=== PATIENT | male | born 1965 | race Asian ===

== ENCOUNTER → 2018-10-02 | Outpatient (REF) ==
[2018-10-02 14:56] LABS: RUBELLA IgG QUALITATIVE IMMUNE (IMMUNE)
[2018-10-03 10:10] LABS: RUBEOLA IgG ANTIBODY >300.0 AU/mL (Immune >29.9)
[2018-10-05 15:07] LABS: QuantiFERON-TB Gold Plus Negative (Negative)
== END ==
LOC: M LAB REF 13:20
DX: Z02.89 Encounter for other administrative examinations (principal)

== ENCOUNTER → 2019-04-30 | Outpatient (CLI) | payer BC ==
--- NOTE | 2019-04-30 10:57 | REP ---
LUMBAR SPINE SERIES: Seven views. HISTORY: Intervertebral disc disorder with radiculopathy. Low back pain. FINDINGS: Lateral views including flexion extension lateral views are presented. There is straightening and some limitation of flexion/extension range of motion. No instability is seen however. Vertebral body heights are preserved in the lumbar spine. Alignment is normal. There is degenerative disc disease at multiple levels. This is most pronounced at L5-S1 where there is narrowing, sclerosis, spurring, and a vacuum phenomenon. There is degenerative narrowing of the L4-5 and L3-4 discs with discogenic spurring anteriorly. There is degenerative disc spurring at T12-L1 as well. There is no evidence of spondylolysis or spondylolisthesis. Mild osteoarthritic facet hypertrophy is present bilaterally at L3-4, L4-5, and L5-S1. Psoas margins are symmetric. Sacrum and SI joints are unremarkable. IMPRESSION: Degenerative spondylosis changes as noted above. Electronically Signed by Aidan Quiñonez MD 04/30/2019 11:15 A
== END ==
LOC: M RAD 09:17
PROVIDERS: ATTEND Physician Assistant
DX: M47.817 Spondylosis without myelopathy or radiculopathy, lumbosacral region (principal); M51.36 Other intervertebral disc degeneration, lumbar region; M25.78 Osteophyte, vertebrae

== ENCOUNTER 2019-05-21 10:24 | Day surgery (SDC) | payer BC ==
[~2019-05-21] VITALS: Ht 162.6 cm; Wt 69.8 kg
[~2019-05-21 10:24] MED LIST: ALLO100T PO; NS 1,000 ML IV ONE
[2019-05-21] MEDS ORDERED: PROPOFOL 500 MG/50 ML VIAL As Ordered ONE (11:23)
[2019-05-21] MEDS ORDERED: LIDOCAINE 2% INJ 100 MG/5 ML SDV (FOR ANES.) As Ordered ONE (11:23)
[2019-05-21] MEDS ORDERED: GLYCOPYRROLATE INJ 0.2 MG/ML 2 ML VIAL As Ordered ONE (11:34)
--- NOTE | 2019-05-21 11:46 | ROOR ---
Patient Name: Alcon Landaverde Procedure Date: 05/21/2019 11:18 AM Date of : 1965 Age: 53 Room: [facility] Gender: Male Note Status: Finalized Procedure: Colonoscopy Indications: Screening for colorectal malignant neoplasm Providers: DO Sage Bella MD: Alfredo Venegas Requesting Provider: Medicines: Propofol per Anesthesia Complications: No immediate complications. Procedure: Pre-Anesthesia Assessment: - Prior to the procedure, a History and Physical was performed, and patient medications and allergies were reviewed. The patient is competent. The risks and benefits of the procedure and the sedation options and risks were discussed with the patient. All questions were answered and informed consent was obtained. Patient identification and proposed procedure were verified by the physician, the nurse, the anesthesiologist and the lubrication technician in the endoscopy suite. Mental Status Examination: alert and oriented. Airway Examination: normal oropharyngeal airway and neck mobility. Respiratory Examination: clear to auscultation. CV Examination: normal. Prophylactic Antibiotics: The patient does not require prophylactic antibiotics. Prior Anticoagulants: The patient has taken no previous anticoagulant or antiplatelet agents. ASA Grade Assessment: II - A patient with mild systemic disease. After reviewing the risks and benefits, the patient was deemed in satisfactory condition to undergo the procedure. The anesthesia plan was to use monitored anesthesia care (MAC). Immediately prior to administration of medications, the patient was re-assessed for adequacy to receive sedatives. The heart rate, respiratory rate, oxygen saturations, blood pressure, adequacy of pulmonary ventilation, and response to care were monitored throughout the procedure. The physical status of the patient was re-assessed after the procedure. The Colonoscope was introduced through the anus and advanced to the cecum, identified by appendiceal orifice and ileocecal valve. The colonoscopy was performed without difficulty. The patient tolerated the procedure well. Findings: Hemorrhoids were found on perianal exam. A less than 5 mm polyp was found in the transverse colon. The polyp was semi-pedunculated. The polyp was removed with a jumbo cold forceps. Resection and retrieval were complete. Estimated blood loss was minimal. A few small-mouthed diverticula were found in the sigmoid colon. The exam was otherwise without abnormality on direct and retroflexion views. Impression: - Hemorrhoids found on perianal exam. - One less than 5 mm polyp in the transverse colon, removed with a jumbo cold forceps. Resected and retrieved. - Diverticulosis in the sigmoid colon. - The examination was otherwise normal on direct and retroflexion views. Recommendation: - Patient has a contact number available for emergencies. The signs and symptoms of potential delayed complications were discussed with the patient. Return to normal activities tomorrow. Written discharge instructions were provided to the patient. - Repeat colonoscopy in 5-10 years for surveillance based on pathology results. - Return to my office as previously scheduled. Ryan Barnett DO 05/21/2019 11:45:51 AM Electronically signed by Ryan Barnett DO Number of Addenda: 0 Note Initiated On: 05/21/2019 11:18 AM Estimated Blood Loss: Estimated blood loss was minimal.
[2019-05-21 12:10] VITALS: BP 142/76
== END 2019-05-21 12:44 | disposition home or self-care (01) ==
LOC: M OPP 10:24
PROVIDERS: ATTEND Surgery
DX: Z12.11 Encounter for screening for malignant neoplasm of colon (principal); K64.9 Unspecified hemorrhoids; D12.3 Benign neoplasm of transverse colon; K57.30 Diverticulosis of large intestine without perforation or abscess without bleeding; Z79.899 Other long term (current) drug therapy

== ENCOUNTER → 2020-04-13 | Outpatient (CLI) | payer BC ==
[~2020-04-13] MED LIST changes: -NS 1,000 ML IV ONE
[2020-04-13 11:50] LABS: BASO # 0.1 10^3/uL (0.0-0.2); EOS # 0.2 10^3/uL (0.0-0.5); EOS % 4.9 % (0.0-3.0); HEMATOCRIT 47.1 % (42.0-52.0); HEMOGLOBIN 15.5 g/dl (13.5-17.5); LYMPH # 1.2 10^3/uL (1.5-5.0); LYMPH % 25.2 % (24.0-44.0); MEAN CORPUSCULAR HEMOGLOBIN 30.3 pg (27.0-33.0); MEAN CORPUSCULAR HGB CONC 32.9 g/dl (32.0-36.5); MONO # 0.4 10^3/uL (0.0-0.8); MONO % 7.5 % (0.0-5.0); NEUTROPHILS % 61.2 % (36.0-66.0); PLATELET COUNT, AUTOMATED 175 10^3/uL (150-450); RED BLOOD COUNT 5.12 10^6/uL (4.30-6.10); WHITE BLOOD COUNT 4.9 10^3/uL (4.0-10.0)
[2020-04-13 12:26] LABS: ALBUMIN 4.1 GM/DL (3.2-5.2); ALT/SGPT 33 U/L (12-78); BILIRUBIN,TOTAL 0.6 MG/DL (0.2-1.0); BLOOD UREA NITROGEN 13 MG/DL (7-18); CARBON DIOXIDE LEVEL 31 MEQ/L (21-32); CHLORIDE LEVEL 105 MEQ/L (98-107); CHOLESTEROL LEVEL 122 MG/DL (<200); CHOLESTEROL RISK RATIO 2.772 (<5); CREATININE FOR GFR 1.22 MG/DL (0.70-1.30); GLOMERULAR FILTRATION RATE > 60.0 (>56); GLUCOSE, FASTING 88 MG/DL (70-100); HDL CHOLESTEROL 44 MG/DL (>40); LDL CHOLESTEROL 60 MG/DL (<100); NON-HDL-C 78 MG/DL; POTASSIUM SERUM 4.2 MEQ/L (3.5-5.1); SODIUM LEVEL 139 MEQ/L (136-145); TOTAL PROTEIN 7.5 GM/DL (6.4-8.2); TRIGLYCERIDES LEVEL 88 MG/DL (<150)
[2020-04-13 12:42] LABS: HEMOGLOBIN A1c 5.9 %
== END ==
LOC: M PLALAB 08:58
PROVIDERS: ATTEND Physician Assistant
DX: E78.2 Mixed hyperlipidemia (principal); M10.072 Idiopathic gout, left ankle and foot; R73.03 Prediabetes

== ENCOUNTER → 2020-09-27 | Outpatient (CLI) | payer BC ==
[2020-09-27 11:26] LABS: HEMOGLOBIN A1c 5.6 %
[2020-09-27 11:36] LABS: ALBUMIN 4.5 GM/DL (3.2-5.2); ALT/SGPT 30 U/L (12-78); BILIRUBIN,TOTAL 0.7 MG/DL (0.2-1.0); BLOOD UREA NITROGEN 19 MG/DL (7-18); CALCIUM LEVEL 9.3 MG/DL (8.5-10.1); CARBON DIOXIDE LEVEL 29 MEQ/L (21-32); CHLORIDE LEVEL 103 MEQ/L (98-107); GLOMERULAR FILTRATION RATE > 60.0 (>56); GLUCOSE, FASTING 99 MG/DL (70-100); POTASSIUM SERUM 4.6 MEQ/L (3.5-5.1); SODIUM LEVEL 139 MEQ/L (136-145); TOTAL PROTEIN 7.9 GM/DL (6.4-8.2); URIC ACID 6.6 MG/DL (3.5-7.2)
== END ==
LOC: M PLALAB 08:08
PROVIDERS: ATTEND Physician Assistant
DX: M10.072 Idiopathic gout, left ankle and foot (principal); R73.03 Prediabetes

== ENCOUNTER → 2021-03-29 | Outpatient (CLI) | payer BC ==
[2021-03-29 13:54] LABS: HEMOGLOBIN A1c 5.6 %
[2021-03-29 14:14] LABS: ALBUMIN 4.6 GM/DL (3.2-5.2); ALT/SGPT 40 U/L (12-78); BILIRUBIN,TOTAL 0.8 MG/DL (0.2-1.0); BLOOD UREA NITROGEN 17 MG/DL (7-18); CALCIUM LEVEL 9.3 MG/DL (8.5-10.1); CARBON DIOXIDE LEVEL 28 MEQ/L (21-32); CHLORIDE LEVEL 101 MEQ/L (98-107); CHOLESTEROL LEVEL 189 MG/DL (<200); CREATININE FOR GFR 1.21 MG/DL (0.70-1.30); FREE T4 1.07 NG/DL (0.76-1.46); GLOMERULAR FILTRATION RATE > 60.0 (>56); GLUCOSE, FASTING 91 MG/DL (70-100); HDL CHOLESTEROL 60 MG/DL (>40); LDL CHOLESTEROL 106 MG/DL (<100); NON-HDL-C 129 MG/DL; POTASSIUM SERUM 4.8 MEQ/L (3.5-5.1); SODIUM LEVEL 138 MEQ/L (136-145); TOTAL PROTEIN 8.2 GM/DL (6.4-8.2); TRIGLYCERIDES LEVEL 114 MG/DL (<150); URIC ACID 7.1 MG/DL (3.5-7.2)
== END ==
LOC: M PLALAB 10:11
PROVIDERS: ATTEND Family Medicine
DX: R73.03 Prediabetes (principal); Z13.29 Encounter for screening for other suspected endocrine disorder; Z12.5 Encounter for screening for malignant neoplasm of prostate; M10.072 Idiopathic gout, left ankle and foot; E78.2 Mixed hyperlipidemia
CPT/HCPCS: 36415; 80053; 80061; 83036; 84439; 84443; 84550; G0103